=== PATIENT | female | born 1960 | race Caucasian/White ===

== ENCOUNTER 2016-09-29 19:29 | Emergency (ER) | payer OTHER ==
--- NOTE | 2016-09-29 20:35 | ED ORDER SUMMARY ---
..... Patient: MARIO COLE OrderSheet [facility] VisitID: [id number] [address] [place] [address] 55y, F Registration Date/Time: 09/29/2016 ORDER SHEET Weight: 92.9 kg (stated) Allergies: morphine, Keflex GENERAL ORDERS: MEDICATION ORDERS: Motrin PO 800 mg (NOW) (20:14 09/29/2016 EKoroleva P.A.-C) (Ack 20:16 JSanders R.N.) (20:21 JSanders R.N.) Flexeril PO 10 mg (NOW) (20:15 09/29/2016 EKoroleva P.A.-C) (Ack 20:16 JSanders R.N.) (20:22 JSanders R.N.) Tylenol PO 650 mg (NOW) (20:15 09/29/2016 EKoroleva P.A.-C) (Ack 20:16 JSanders R.N.) (20:22 JSanders R.N.) IV FLUIDS: ORDER SHEET NOTES: [Electronically signed by Sheriff Sakina Ramesh (20:45 09/29/2016)] [Electronically signed by Sherice Prajapati P.A.-C (21:50 09/29/2016)] [Electronically locked/signed by Sheriff Sakina Ramesh (20:45 09/29/2016)]
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
--- NOTE | 2016-09-29 20:35 | ED ORDER SUMMARY ---
..... Patient: MARIO COLE OrderSheet [facility] VisitID: [id number] [address] [place] [address] 55y, F Registration Date/Time: 09/29/2016 ORDER SHEET Weight: 92.9 kg (stated) Allergies: morphine, Keflex GENERAL ORDERS: MEDICATION ORDERS: Motrin PO 800 mg (NOW) (20:14 09/29/2016 EKoroleva P.A.-C) (Ack 20:16 JSanders R.N.) (20:21 JSanders R.N.) Flexeril PO 10 mg (NOW) (20:15 09/29/2016 EKoroleva P.A.-C) (Ack 20:16 JSanders R.N.) (20:22 JSanders R.N.) Tylenol PO 650 mg (NOW) (20:15 09/29/2016 EKoroleva P.A.-C) (Ack 20:16 JSanders R.N.) (20:22 JSanders R.N.) IV FLUIDS: ORDER SHEET NOTES: [Electronically signed by Sheriff Sakina Ramesh (20:45 09/29/2016)] [Electronically signed by Sherice Prajapati P.A.-C (21:50 09/29/2016)] [Electronically locked/signed by Sheriff Sakina Ramesh (20:45 09/29/2016)]
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
--- NOTE | 2016-09-29 21:50 | ED MED RECONCILIATION SUMMARY ---
Patient: MARIO COLE Medication Reconciliation Report [facility] VisitID: [id number] [address] [place] [address] 55y, F Registration Date/Time: 09/29/2016 Weight: 92.9 kg Height/Length: 61 in. BMI: 38.7 ALLERGIES: Keflex, morphine The patient's Home Medications are listed below: THE FOLLOWING MEDICATIONS NEED TO BE RECONCILED: Clindamycin HCl Oral (150 mg), 4x a day Ibuprofen Oral (800 mg), 3x a day The source(s) of the original Home Medication information: Not obtained. The following Medications were given to the patient in the Emergency Department: Motrin [PO] PO 800 mg, administered: 09/29/2016 8:21:00 PM Flexeril [PO] PO 10 mg, administered: 09/29/2016 8:22:00 PM Tylenol [PO] PO 650 mg, administered: 09/29/2016 8:22:00 PM The following Medications were prescribed to the patient: Flexeril 10 mg: take 1 orally every 8 hours for 3 days as needed for muscle spasm. Dispense ten (10). No refills. Substitution is permissible. -- Sherice Prajapati P.ARuss-Sixto Motrin 800 mg tablets: take 1 tablet orally every 8 hours for 4 days, as needed for pain. Dispense fifteen (15). No refill. -- Sherice Prajapati P.A.-Sixto Tylenol ER 650 mg (available over the counter): take 1 orally every 6 hours for 4 days, as needed for pain. No refill. Substitution is permissible. -- Sherice Prajapati P.A.-C
--- NOTE | 2016-09-29 21:50 | ED MAR SUMMARY ---
..... Medication Administration Record [facility] [address] [place] [address] Patient: MARIO COLE Visit ID: [id number] 55y, F Weight: 92.9 kg Height/Length: 61 in BMI: 38.7 ALLERGIES: Keflex, morphine Given 20:09/29/2016 Sierra Rees R.N. Medication Administered: MOTRIN [PO], Dose: 800 mg Tablets PO. Medication Ordered: Motrin PO 800 mg (NOW). Given 20:09/29/2016 Sierra Rees R.NRuss Medication Administered: FLEXERIL [PO] (CYCLOBENZAPRINE HCL), Dose: 10 mg Tablets PO. Medication Ordered: Flexeril PO 10 mg (NOW). Given 20:09/29/2016 Sierra Rees RRussNRuss Medication Administered: TYLENOL [PO] (ACETAMINOPHEN), Dose: 650 mg Tablets PO. Medication Ordered: Tylenol PO 650 mg (NOW).
--- NOTE | 2016-09-29 21:50 | ED MAR SUMMARY ---
..... Medication Administration Record [facility] [address] [place] [address] Patient: MARIO COLE Visit ID: [id number] 55y, F Weight: 92.9 kg Height/Length: 61 in BMI: 38.7 ALLERGIES: Keflex, morphine Given 20:09/29/2016 Sierra Rees R.N. Medication Administered: MOTRIN [PO], Dose: 800 mg Tablets PO. Medication Ordered: Motrin PO 800 mg (NOW). Given 20:09/29/2016 Sierra Rees R.NRuss Medication Administered: FLEXERIL [PO] (CYCLOBENZAPRINE HCL), Dose: 10 mg Tablets PO. Medication Ordered: Flexeril PO 10 mg (NOW). Given 20:09/29/2016 Sierra Rees RRussNRuss Medication Administered: TYLENOL [PO] (ACETAMINOPHEN), Dose: 650 mg Tablets PO. Medication Ordered: Tylenol PO 650 mg (NOW).
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
--- NOTE | 2016-09-29 21:50 | ED MED RECONCILIATION SUMMARY ---
Patient: MARIO COLE Medication Reconciliation Report [facility] VisitID: [id number] [place] [address] 55y, F Registration Date/Time: 09/29/2016 Weight: 92.9 kg Height/Length: 61 in. BMI: 38.7 ALLERGIES: Keflex, morphine The patient's Home Medications are listed below: THE FOLLOWING MEDICATIONS NEED TO BE RECONCILED: Clindamycin HCl Oral (150 mg), 4x a day Ibuprofen Oral (800 mg), 3x a day The source(s) of the original Home Medication information: Not obtained. The following Medications were given to the patient in the Emergency Department: Motrin [PO] PO 800 mg, administered: 09/29/2016 8:21:00 PM Flexeril [PO] PO 10 mg, administered: 09/29/2016 8:22:00 PM Tylenol [PO] PO 650 mg, administered: 09/29/2016 8:22:00 PM The following Medications were prescribed to the patient: Flexeril 10 mg: take 1 orally every 8 hours for 3 days as needed for muscle spasm. Dispense ten (10). No refills. Substitution is permissible. -- Sherice Prajapati P.ARuss-Sixto Motrin 800 mg tablets: take 1 tablet orally every 8 hours for 4 days, as needed for pain. Dispense fifteen (15). No refill. -- Sherice Prajapati P.A.-Sixto Tylenol ER 650 mg (available over the counter): take 1 orally every 6 hours for 4 days, as needed for pain. No refill. Substitution is permissible. -- Sherice Prajapati P.A.-C
== END 2016-09-29 20:45 | disposition home or self-care (01) ==
LOC: ED SRH 19:29
DX: S16.1XXA Strain of muscle, fascia and tendon at neck level, initial encounter (principal); V43.52XA Car driver injured in collision with other type car in traffic accident, initial encounter; Y93.89 Activity, other specified; Y92.410 Unspecified street and highway as the place of occurrence of the external cause; Y99.9 Unspecified external cause status; F17.210 Nicotine dependence, cigarettes, uncomplicated